=== PATIENT | female | born 1970 | race Asian ===

== ENCOUNTER 2024-01-17 17:28 | Emergency (ER) | payer OTHER ==
[~2024-01-17] VITALS: Ht 160 cm; Wt 58.1 kg
[2024-01-17 20:02] VITALS: BP 106/68; TEMP 98.4; O2SAT 99
[2024-01-17] MEDS ORDERED: ACETAMINOPHEN ES 500 MG TABLET ONE (20:28)
[2024-01-17] MEDS ORDERED: KETOROLAC TROMETHAMINE 15 MG/ML VIAL ONE (20:28)
[2024-01-17] MEDS: KETOROLAC TROMETHAMINE 15 MG/ML VIAL IV ONE (20:39)
[2024-01-17] MEDS: IV NS 0.9% 1,000 ML IV ONE (20:39)
[2024-01-17] MEDS: ACETAMINOPHEN 325 MG TABLET PO ONE (20:39)
[2024-01-17 20:48] LABS: BASOPHILS # (AUTO) 0.1 K/uL (0.0-0.2); BASOPHILS % (AUTO) 0.5 % (0.0-2.0); HEMATOCRIT 34 % (33-45); HEMOGLOBIN 11.1 g/dL (11.5-14.8); LYMPHOCYTES # (AUTO) 1.8 K/uL (0.8-4.8); LYMPHOCYTES % (AUTO) 16.9 % (20.0-44.0); MEAN CORPUSCULAR HEMOGLOBIN 27 PG (26.0-33.0); MEAN CORPUSCULAR HGB CONC 33 g/dl (31.0-36.0); MEAN CORPUSCULAR VOLUME 82 fL (82-100); MONOCYTES # (AUTO) 1.1 K/uL (0.1-1.30); MONOCYTES % (AUTO) 10.7 % (2.0-12.0); NEUTROPHILS # (AUTO) 7.5 K/uL (1.8-8.9); NEUTROPHILS % (AUTO) 71.9 % (43.0-81.0); PLATELET COUNT (AUTO) 235 K/uL (150-450); RED BLOOD CELL COUNT(AUTO) 4.11 MIL/uL (4.0-5.2); RED CELL DISTRIBUTION WIDTH 14.8 % (11.5-15.0); WHITE BLOOD COUNT (AUTO) 10.4 K/uL (4.3-11.0)
[2024-01-17 20:55] LABS: CALCIUM, SERUM 8.5 mg/dL (8.5-10.1); POTASSIUM 3.7 mmol/L (3.5-5.1)
[2024-01-17] MEDS ORDERED: IBUP-1953 PO (21:59)
[2024-01-17] MEDS ORDERED: TYL2T PO (21:59)
[2024-01-17] MEDS ORDERED: BENZ-13 PO (21:59)
== END 2024-01-17 22:16 | disposition home or self-care (01) ==
LOC: ER 17:35
DX: U07.1 COVID-19 (principal); B34.9 Viral infection, unspecified
CPT/HCPCS: 99284; 96374; 71045; 96361; 87426; 87804 ×2; 85025; 80048; 36415; J7030; J1885